=== PATIENT | female | born 1990 | race Caucasian/White ===

== ENCOUNTER 2017-02-28 20:32 | Emergency (ER) | payer SELFPAY ==
[~2017-02-28] VITALS: Ht 149.9 cm; Wt 45.4 kg
[~2017-02-28 20:32] MED LIST: HYDR2TAB34 PO
[2017-02-28 21:10] VITALS: BP_SYST 137
--- NOTE | 2017-02-28 21:10 | NUR ---
Patient triaged and placed in waiting room. VSS and patient appears in no acute distress at this time. Accompanied by family, awaiting available bed, and MD notified of need for MSE.
[2017-02-28] MEDS ORDERED: ACETAMINOPHEN 500 MG TABLET PO ONE (22:00)
--- NOTE | 2017-02-28 22:30 | NUR ---
Patient to ER [facility] for evaluation. Side rails up. Report given to Deion LIANG.
--- NOTE | 2017-02-28 22:35 | NUR ---
Patient arrived to ED a/o x 4 with c/o flu-like symptoms. Patient presents with persistent N/V x 1 day. Reports 6/10 body aches with generalized weakness. Patient febrile at 100.0. Skin pale and diaphoretic.
--- NOTE | 2017-02-28 22:40 | NUR ---
ED MD Hassan at bedside for medical evaluation.
[2017-02-28] MEDS ORDERED: NACL 0.9% 1,000 ML IV ONE (22:45)
[2017-02-28] MEDS ORDERED: ONDANSETRON HCL 4 MG/2 ML VIAL IVP ONE (22:45)
[2017-02-28] MEDS ORDERED: KETOROLAC TROMETHAMINE 30 MG VIAL IVP ONE (22:45)
[2017-02-28] MEDS ORDERED: OSELTAMIVIR PHOSPHATE 75 MG CAPSULE PO ONE (22:45)
[2017-02-28] MEDS ORDERED: METOCLOPRAMIDE HCL 10 MG/2 ML VIAL IVP ONE (23:30)
--- NOTE | 2017-03-01 00:10 | NUR ---
Patient reports pain 5/10 30 minutes after administration of tordal. No adverse reactions noted. Will continue to monitor.
[2017-03-01] MEDS ORDERED: NACL 0.9% 1,000 ML IV ONE (00:15)
[2017-03-01] MEDS ORDERED: ONDANSETRON HCL 4 MG/2 ML VIAL IVP ONE (00:15)
--- NOTE | 2017-03-01 00:47 | NUR ---
Medicated per MD orders. IVF infusing with no s/s of infiltration at this time. Will cont to monitor
[2017-03-01 01:47] LABS: MEAN CORPUSCULAR HGB CONC 34 % (32-36); MEAN CORPUSCULAR VOLUME 92 fL (79.0-98.0)
[2017-03-01 01:53] LABS: BASOPHILS # (AUTO) 0.1 K/uL (0.0-0.2); BASOPHILS % (AUTO) 1.6 % (0.0-2.0); EOSINOPHILS % (AUTO) 0.1 % (0.0-4.0); HEMATOCRIT 36.1 % (36-48); HEMOGLOBIN 12.4 g/dL (12.0-16.0); LYMPHOCYTES # (AUTO) 0.6 K/uL (1.0-5.5); LYMPHOCYTES % (AUTO) 13.9 % (20.5-51.5); MEAN CORPUSCULAR HEMOGLOBIN 32 pg (27-31); MONOCYTES # (AUTO) 0.8 K/uL (0.0-1.0); MONOCYTES % (AUTO) 18.3 % (1.7-9.3); NEUTROPHILS # (AUTO) 2.7 K/uL (1.8-7.7); NEUTROPHILS % (AUTO) 66.1 % (40.0-70.0); PLATELET COUNT (AUTO) 165 K/uL (130-430); RED BLOOD CELL COUNT(AUTO) 3.94 MIL/uL (4.2-6.2); RED CELL DISTRIBUTION WIDTH 11.4 % (9.0-15.0); WHITE BLOOD COUNT (AUTO) 4.2 K/uL (4.8-10.8)
[2017-03-01 01:57] LABS: CREATININE 0.66 mg/dL (0.55-1.30)
[2017-03-01 02:01] LABS: ALBUMIN 3.3 g/dL (3.4-4.8); TOTAL BILIRUBIN 0.3 mg/dL (0.0-1.0)
[2017-03-01] MEDS ORDERED: POTASSIUM CHLORIDE 20 MEQ/PKT PACKET PO ONE (02:15)
--- NOTE | 2017-03-01 02:30 | NUR ---
ED MD Hassan at bedside reassessing patient.
[2017-03-01 02:50] LABS: BILIRUBIN,URINE NEGATIVE (NEGATIVE); CLARITY/URINE CLEAR (CLEAR); COLOR,URINE YELLOW (YELLOW); GLUCOSE,URINE NEGATIVE (NEGATIVE); KETONES,URINE 3+ (NEGATIVE); LEUKOCYTE ESTERASE ,URINE NEGATIVE (NEGATIVE); NITRITE, URINE NEGATIVE (NEGATIVE); PROTEIN URINE NEGATIVE (NEGATIVE); UROBILINOGEN,URINE 0.2 (0.2-1.0)
[2017-03-01 02:51] LABS: BLOOD, URINE TRACE (NEGATIVE)
[2017-03-01 02:55] VITALS: BP_SYST 129
[2017-03-01 02:55] LABS: BACTERIA,URINE MODERATE /HPF (None Seen); MUCUS,URINE 2+ /LPF (None Seen); RBC,URINE 0-3 /HPF (0-3); WBC,URINE 0-3 /HPF (0-3)
--- NOTE | 2017-03-01 02:55 | NUR ---
Patient given written and verbal discharge instructions and verbalizes understanding. ER MD discussed with patient the results and treatment provided. Patient in stable condition. ID arm band removed. IV catheter removed intact and dressing applied, no active bleeding. Rx of Zofran, promethazine and tamiflu given. Patient educated on pain management and to follow up with PMD. Pain Scale 3/10 tolerable for patient. Opportunity for questions provided and answered.
== END 2017-03-01 02:55 | disposition home or self-care (01) ==
LOC: SED 20:32
DX: J09.X2 Influenza due to identified novel influenza A virus with other respiratory manifestations (principal); E87.6 Hypokalemia; E86.0 Dehydration; F41.9 Anxiety disorder, unspecified; Z87.442 Personal history of urinary calculi; Z88.8 Allergy status to other drugs, medicaments and biological substances
CPT/HCPCS: 36415; 80053; 81000; 81025; 83605; 85025; 86710; 87040; 87086; 96361; 96374; 96375; 96376; 99284; G9035; J1885; J2405; J2765; J7030 ×2